=== PATIENT | female | born 1935 | race Caucasian/White ===

== ENCOUNTER 2018-01-11 16:20 | Emergency (ER) | payer MEDICARE, OTHER, SELFPAY ==
[2018-01-11 16:21] VITALS: BP 111/65; PULSE 85; RESP 18; TEMP 36.7; O2SAT 95; BMI 36.0
--- NOTE | 2018-01-11 17:15 | ED.DCSUM_ITS ---
- ER Visit Summary Date of Service: 01/11/18 Chief Complaint: Posterior left knee pain with a history of recently being diagnosed with a Cat's cyst History of Present Illness: The patient is a 83 F recently diagnosed with a left Cat's cyst. This was done in ER in [place] by ultrasound. They came in today to get pain relief. And were hoping to get it drained. I explained to the patient and her daughter is with her that that is not something typically do in the emergency department. And at the fall with an orthopedic surgeon. Physical Examination: Elderly female no acute distress. Vital signs are stable afebrile. H EENT exam unremarkable. Lungs clear to auscultation. Heart regular rhythm no murmur. Abdomen soft nontender. She is moving all 4 extremities. Neurovascularly intact. The popliteal fossa of her left knee is tender palpation and does feel like a cystlike structure. There is no cellulitis. No redness or warmth. Distally the left foot is neurovascularly intact. Test Results: None Emergency Department Course and Treatment: I had a long discussion with the patient and her daughter at bedside and another daughter via phone. She is a follow-up locally with an orthopedic surgeon and see if they will dryness or other treatment options. She will be placed on Peerless for pain. Given to here. Treatment Plan: Peerless for pain and orthopedic referral Disposition: Discharge Impression: Acute left posterior knee pain with previously diagnosed Cat's cyst. This note was generated with [employer] dictation software. It may contain incorrect words, spelling, and punctuation that were not noted in review of the chart prior to signing ED Disposition - Plan for ED Patient: Chief Complaint: Abscess
--- NOTE | 2018-01-11 17:15 | ED.DEP ---
ED Disposition - Plan for ED Patient: Disposition: Home or Assisted Living Chief Complaint: Abscess Prescriptions: Hydrocodone/Acetaminophen [[place] 5-325 Tablet] 1 ea PO Q4H PRN PRN #30 tab PRN Reason: Pain Referrals: Mac Duong, [STAFF PHYSICIAN] - As soon as possible Additional Instructions: Call and follow-up with the orthopedic doctors as soon as possible. Dr. Mac Duong works here in [place] or or call the [facility] in [facility]. [place] for pain. The orthopedic surgeon may be able to drain this but actually fix the problem they will discuss with you having knee replacement surgery.
--- NOTE | 2018-01-11 17:19 | DCINST.ED_ITS ---
ED Disposition - Plan for ED Patient: Disposition: Home or Assisted Living Chief Complaint: Abscess Prescriptions: Hydrocodone/Acetaminophen [[place] 5-325 Tablet] 1 ea PO Q4H PRN PRN #30 tab PRN Reason: Pain Referrals: Mac Duong, [STAFF PHYSICIAN] - As soon as possible Additional Instructions: Call and follow-up with the orthopedic doctors as soon as possible. Dr. Mac Duong works here in [place] or or call the [facility] in [facility]. [place] for pain. The orthopedic surgeon may be able to drain this but actually fix the problem they will discuss with you having knee replacement surgery.
[2018-01-11] MEDS: HYDROcodone Bitartrate/Apap 5/325 Tablet PO (17:39)
[2018-01-11 17:45] VITALS: PULSE 79; RESP 18; O2SAT 97
== END 2018-01-11 17:51 | disposition home or self-care (01) ==
PROVIDERS: Emergency Provider Emergency Medicine
DX: M25.562 Pain in left knee (principal); M71.22 Synovial cyst of popliteal space [Baker], left knee; I10 Essential (primary) hypertension; E78.00 Pure hypercholesterolemia, unspecified; M19.90 Unspecified osteoarthritis, unspecified site; Z79.01 Long term (current) use of anticoagulants; Z79.899 Other long term (current) drug therapy
CPT/HCPCS: 99283